=== PATIENT | female | born 1995 | race Hispanic/Latino ===

== ENCOUNTER 2016-11-29 22:01 | Emergency (ER) | payer MEDICAID ==
[~2016-11-29] VITALS: Ht 157.5 cm; Wt 54.5 kg
[~2016-11-29 22:01] MED LIST: METO-301 PO; NO; NOMED
[2016-11-29 22:05] VITALS: BP 137/74; PULSE 94; RESP 18; O2SAT 100
--- NOTE | 2016-11-30 00:04 | ED.REPORT ---
HPI-URI / Cough / Cold Date of Service Nov 30, 2016 ED Provider: Dr. Bernardo Hubbard MD A 21 year old, 15 week female with a history of GERD presents to the ED complaining of a fever that began a few days ago. Patient has also been experiencing fever, nausea, vomiting and generalized myalgia. Symptoms have been constant since onset. She denies any other medical complaints at this time. Nursing Notes Stated Complaint: FEVER/ 15 WKS Chief Complaint: FLU/Cold Symptoms Nursing Notes Reviewed: Yes Allergies: Coded Allergies: peanut (Verified Allergy, Unknown, 06/20/16) Scheduled PRN Metoclopramide (Reglan) 10 Mg Tablet 10 MG PO QID PRN PRN For Nausea Miscellaneous Medications ([No]) No Historical Medication (No Historical Medication) Ea General Time Seen by MD: 00:04 Chief Complaint Fever Hx Obtained From: Patient Arrived By: Walk-in Onset Occurred: 3 days ago Symptom Duration: Since onset Location: : Diffuse myalgia Quality: Painful Severity: Current: Mild Severity: Maximum: Mild Associated with: Reports: Body aches, Chills, Fever, Myalgia, Nausea, Vomiting Pertinent Negative: Pt denies other symptoms Recent Healthcare: No recent doctor visit, No recent hospitalization Past Medical History Past Medical History Seasonal allergies - 15 weeks Reports: GERD Past Surgical History None reported. Smoking History Never Smoker Social History Alcohol Use: Denies alcohol use Drug Use: Denies drug use Other Social History: Good social support, Local resident Occupation Works at [employer] Ambulatory Status Independent Review of Systems Constitutional: Reports: Chills, Fever, Malaise Respiratory: Reports: Non-productive cough, Denies: Shortness of breath GI: Reports: Nausea, Vomiting Neurologic: Denies: Change LOC Complete sys rev & neg: except as marked. Female: Reports: Musculoskeletal: Reports: Myalgia Physical Exam Initial Vital Signs Vital Signs (First) Date Time Temp Pulse Resp B/P Pulse Ox O2 Delivery O2 Flow Rate FiO2 11/29/16 22:05 37.1 94 18 137/74 100 Room Air Initial VS: Reviewed Head / Eyes: Atraumatic, Normocephalic, PERRL Extremities: Vascular intact, Neuro intact, No swelling, No tenderness Skin: Warm, Dry, No cyanosis Neurologic: Alert, Oriented, Nonfocal Psychiatric: Mood/affect normal, Behavior normal, Normal thought content General/Constitutional: Awake, Alert ENT: Atraumatic, Airway patent, Mucous membranes moist Respiratory / Chest: Atraumatic, Breath sounds NL, Breath sounds = bilat Interpretation & Diagnostics Lab Results Interpretation Result Diagram: 11/30/16 0004 11/30/16 0004 Test 11/30/16 00:04 11/30/16 01:39 White Blood Count 8.8th/mm3 (3.8-10.1) Red Blood Count 3.46mil/mm3 (3.90-5.20) Hemoglobin 11.5g/dL (12.0-15.6) Hematocrit 33.0% (35.0-46.0) Mean Corpuscular Volume 95.4fL (81-100) Mean Corpuscular Hemoglobin 33.2pg (27.0-35.0) Mean Corpuscular Hemoglobin Concent 34.8% (32.0-37.0) Red Cell Distribution Width 12.3% (12.3-15.4) Platelet Count 276bil/L (150-400) Neutrophils (%) (Auto) 75.7% (40-74) Lymphocytes (%) (Auto) 13.1% (14-46) Monocytes (%) (Auto) 10.0% (4-12) Eosinophils (%) (Auto) 0.6% (0-5) Basophils (%) (Auto) 0.3% (0-3) Hold Purple Top Tube Received (Received) Hold Blue Top Tube Received (Received) Sodium Level 133mEq/L (134-144) Potassium Level 3.5mEq/L (3.5-5.2) Chloride Level 98mEq/L (97-108) Carbon Dioxide Level 22mmol/L (18-29) Blood Urea Nitrogen 4mg/dL (6-20) Creatinine 0.51mg/dL (0.57-1.00) Estimat Glomerular Filtration Rate 218mL/min (>59) Glucose Level 97mg/dL (60-99) Calcium Level 9.0mg/dL (8.5-10.1) Total Bilirubin 0.3mg/dL (0.0-1.2) Aspartate Amino Transf (AST/SGOT) 13U/L (0-50) Alanine Aminotransferase (ALT/SGPT) 11U/L (0-32) Alkaline Phosphatase 58U/L (25-150) Total Protein 7.3g/dL (6.4-8.4) Albumin 4.1g/dL (3.4-5.0) Hold [place] Top Tube Received (Received) Urine Color Yellow (YELLOW) Urine Appearance Slightly cloudy Urine pH 7.5 (5.0-8.0) Urine Specific [place] 1.010 (1.003-1.035) Urine Protein Negativemg/dL (NEG,TRACE) Urine Glucose (UA) Negativemg/dL (NEGATIVE) Urine Ketones 15mg/dL (NEGATIVE) Urine Occult Blood Negative (NEGATIVE) Urine Nitrite Negative (NEGATIVE) Urine Bilirubin Negative (NEGATIVE) Urine Urobilinogen Normalmg/dL (NORMAL) Urine Leukocyte Esterase Negative (NEGATIVE) Urine RBC 0-2/hpf (0-2) Urine WBC 0-5/hpf (0-5) Urine Epithelial Cells Many/hpf (NONE-MOD) Urine Crystals Amorphous phosphates Urine Bacteria Moderate/hpf (NONE-FEW) Urine Hyaline Casts None/lpf (NONE) Urine Granular Casts None seen (NONE SEEN) Urine Waxy Casts None seen (NONE SEEN) Urine Red Blood Cell Casts None seen (NONE SEEN) Urine White Blood Cell Casts None seen (NONE SEEN) Urine Mucus None seen (None Seen) Urine Trichomonas None seen (NONE SEEN) Urine Yeast None (NONE SEEN) Urinalysis Comment Urine Culture Reflexed Indicated Lab Results Interpretation: INFLUENZA: Negative Re-Eval/Medical Decision Med Decision/Clinical Course 21-year-old females roughly 18 weeks . She had a lot of vomiting this and she comes in complaining of nausea vomiting. She also has fever chills and a URI on exam. She did not receive the influenza vaccine. She has clinical influenza when you take every thing into account. A rapid flu test was negative however I think it is going to be a false negative and the risk of influenza is greater than the risk of Tamiflu. Especially considering that we very seen 6 influenza a [place] and that she is clearly been exposed influenza. Influenza is rampant in our community and she is not vaccinated. I discussed all this and she agreed to the Tamiflu. We hydrated her with 2 L of saline. She received Reglan and Benadryl. At discharge she looked well and felt well. Close outpatient follow up recommended. Laboratory work was all very reassuring. I found no evidence of a bacterial infection. Re-Evaluation/Progress : Time of Eval: 02:16 Patient Status: Condition improved Re-Evaluation/Progress Note: Patient is rechecked. She is informed of her negative influenza results and diagnoses. All of the patient's questions are addressed. She understands and agrees with the treatment plan to discharge. Counseled Regarding: Diagnosis, Lab results, Need for follow-up, When/why to return to ED Discharge & Departure Impression: Primary Impression: Upper respiratory infection URI type: unspecified URI Qualified Code: J06.9 - Acute upper respiratory infection, unspecified Additional Impressions: Vomiting Vomiting type: unspecified Vomiting Intractability: unspecified Nausea presence: unspecified Qualified Code: R11.10 - Vomiting, unspecified Weeks of gestation: 15 weeks Qualified Code: Z3A.15 - 15 weeks gestation of Disposition: Home Discharge Condition All VS Reviewed: Yes Condition: Stable Patient Instructions: Acute Nausea and Vomiting (ED), Upper Respiratory Infection (ED) Additional Instructions: I am highly suspicious for you have an influenza A in spite of the negative test. It is recommended that all women regardless of a trimester have the in activated influenza vaccine. Discussed this with her licensed investment sales assistant and consider vaccination. Due to the fact that I think you have the disease I recommend that she take Tamiflu twice daily for 5 days. You may take your Reglan as prescribed for the nausea. Drink plenty of liquids. Your laboratory work was otherwise very reassuring. Your urine sample does not appear to show any signs of infection. If you have any worsening symptoms that do not hesitate to return to the emergency department. He may take Tylenol as directed for fever. Do not take aspirin or aspirin-containing products. Stay well hydrated. Return if any problems or any worsening symptoms. Call your licensed investment sales assistant tomorrow morning at set up a follow-up. Referrals: [facility] (PCP) [facility] Scribe Attestation Portions of this note were transcribed by Patience Ortiz. I, Dr. Hubbard personally performed the history, physical exam and medical decision-making; I reviewed and confirmed the accuracy of the information in the transcribed note. Signed by: Kim Kim, 11/30/16 0300. Bernardo Hubbard DO Nov 30, 2016 00:04 PATIENCE ORTIZ Nov 30, 2016 00:28
[2016-11-30] MEDS ORDERED: 0.9% Sodium Chloride 1,000 ML IV SCH (00:05)
[2016-11-30 00:11] LABS: BASOPHILS % (AUTO) 0.3 % (0-3); EOSINOPHILS % (AUTO) 0.6 % (0-5); Mean Corpuscular Hemoglobin 33.2 pg (27.0-35.0); Mean Corpuscular Volume 95.4 fL (81-100); NEUTROPHILS % (AUTO) 75.7 % (40-74); Platelet Count 276 bil/L (150-400)
[2016-11-30] MEDS ORDERED: MetoCLOpramide 5 mg/mL 2 mL Inj IVPUSH ONE (00:30)
[2016-11-30 01:57] LABS: APPEARANCE,URINE SLIGHTLY CLOUDY (CLEAR,HAZY); COLOR,URINE YELLOW (YELLOW); OCCULT BLOOD,URINE NEGATIVE (NEGATIVE); PH,URINE 7.5 (5.0-8.0); UROBILINOGEN,URINE NORMAL (NORMAL)
[2016-11-30 02:34] VITALS: BP 117/71; PULSE 90; RESP 18; O2SAT 98
== END 2016-11-30 02:36 | disposition home or self-care (01) ==
LOC: SED 22:01
DX: O99.512 Diseases of the respiratory system complicating pregnancy, second trimester (principal); O21.0 Mild hyperemesis gravidarum; J06.9 Acute upper respiratory infection, unspecified; K21.9 Gastro-esophageal reflux disease without esophagitis; Z3A.15 15 weeks gestation of pregnancy
CPT/HCPCS: 36415; 80053; 81000; 85025; 87086; 87088; 87804; 96361; 96374; 96375; 99285; J1200; J2765; J7030

== ENCOUNTER 2017-05-04 02:41 | Inpatient (IN) | payer MEDICAID ==
[~2017-05-04] VITALS: Ht 157.5 cm; Wt 64.9 kg
[2017-05-04] MEDS ORDERED: Promethazine 25 mg/mL Inj IM ONE (03:20)
[2017-05-04] MEDS ORDERED: fentaNYL-PF 50 mCg/mL 2 mL Inj IVPUSH PRN (06:10)
[2017-05-04] MEDS ORDERED: Lactated Ringer's 1,000 ML IV PRN (06:10)
[2017-05-04] MEDS ORDERED: Sodium Chloride LOK Flush 10 mL Syringe IVFLUSH PRN (06:10)
[2017-05-04] MEDS ORDERED: Hemorrhage Kit, Post Partum XX ONE ×2 (06:10→18:40)
[2017-05-04] MEDS ORDERED: Oxytocin 30 Units/500 mL LR 30 UNITS in IV Premix 1 EACH IV PRN ×3 (06:10→18:40)
[2017-05-04] MEDS ORDERED: Oxytocin 10 Unit/mL Inj IM PRN ×2 (06:10→18:40)
[2017-05-04] MEDS ORDERED: Carboprost 250 mCg/mL Inj IM PRN ×2 (06:10→18:40)
[2017-05-04] MEDS ORDERED: Methylergonovine 0.2 mg/mL Inj IM PRN ×2 (06:10→18:40)
[2017-05-04 06:49] LABS: Mean Corpuscular Hemoglobin 32.5 pg (27.0-35.0); Mean Corpuscular Volume 96.4 fL (81-100)
[2017-05-04] MEDS ORDERED: PREN1TAB87 PO (08:30)
[2017-05-04] MEDS ORDERED: Lactated Ringer's 500 ML IV ONE (08:34)
--- NOTE | 2017-05-04 08:34 | PCM.HPANE ---
Patient Data Date of Service: May 04, 2017 (0830) Surgeon Admitting Provider:Ashlee Alves MD Attending Provider:Ashlee Alves MD Primary Care Physician:Ashlee Alves MD Other Provider:Mary Ann Sellers Anesthesia Reason for Visit Term Labor TERM LABOR Ht/WT & BMI Body Mass Index Allergies Coded Allergies: peanut (Verified Allergy, Unknown, 06/20/16) Past Anesthesia History Anesthesia History: Denies:: Abnormal Airway, Anesthesia Reactions Diabetes History Hx Diabetes?: No MRSA MRSA: No Medications Hypertension Medication: No Home Meds Incl Beta Marjorie: No Active Scripts Metoclopramide (Reglan)10 Mg Cmbyyd46 Mg PO QID PRN For Nausea #40 TABLET Ref 0 Prov:GomesLatha DO 09/22/16 Reported Medications Vit W-Ca,Fe,FA(<1 mg) ( Vitamins)1 Each Tablet1 Each PO 05/04/17 No Historical Medication Ea 10/15/13 [No] No Conflict Check 12/14/12 History History of ENT Problems?: No HEENT History: Denies:: Abnormal Airway Denture Type: None Teeth Condition: Within Normal Limits Hx of Heart Problems?: No Cardiovascular History: Denies:: Congestive Heart Failure Hypertension Hx of Respiratory Problem?: No Respiratory History: Denies:: Tuberculosis Hx Neurologic Problems?: No Hx of GI Problems?: No Hx of Problems?: No Female Hx: Positive for:: Currently Hx Musculoskeletal Problems?: No Hx of Psycho/Social Problems?: No Hx Surgeries?: No Hx Any Other Health Problems?: No Hx Diabetes: No Hx Alcohol Use: NoHx Substance Use: No Smoking Status: Never Smoker Have You Smoked inLast 12 mo: No Stop/Bang AMANDA Risk Assessment: Low Risk, <3 Yes Risk Assessment Category Category 1A: Patient has history of documented sleep apnea, and HAS NOT received any narcotic, sedative or anesthesia administration during this stay. Category 1B: Patient has history of documented sleep apnea, and HAS received any narcotic , sedative or anesthesia administration during this stay Category 2: Patient has SUSPECTED Obstructive Sleep Apnea, and HAS received any narcotic , sedative or anesthesia administration during this stay. Category 3: Patient has SUSPECTED Obstructive Sleep Apnea and HAS NOT received narcotic, sedative or anesthesia administration during this stay. Category 4: Outpatient in Procedural Areas with known sleep apnea or who screen positive for High Risk via the STOP/BANG questionnaire. Exam Exam General Appearance: Alert, Oriented X3 HEENT/AIRWAY: MP 1 Lungs: Clear to Auscultation Heart: Exam Unremarkable Meds/Labs/Diagnostics Labs Test 05/04/17 06:25 White Blood Count 11.1th/mm3 (3.8-10.1) Red Blood Count 3.38mil/mm3 (3.90-5.20) Hemoglobin 11.0g/dL (12.0-15.6) Hematocrit 32.6% (35.0-46.0) Mean Corpuscular Volume 96.4fL (81-100) Mean Corpuscular Hemoglobin 32.5pg (27.0-35.0) Mean Corpuscular Hemoglobin Concent 33.7% (32.0-37.0) Red Cell Distribution Width 11.4% (12.3-15.4) Platelet Count 197bil/L (150-400) Plan Impression Patient chart reviewed, patient interviewed and anesthestic plan with risks, benefits, and alternatives discussed, and informed consent obtained. ASA Physical Status: ASA1 Normal Healthy Anesthetic Plan: Epidural Bene/Risks/Altern/Consents: Yes HP Complete Prior to Induction: Yes William Frost MD May 04, 2017 08:34
[2017-05-04] MEDS ORDERED: Atropine 1 mg/10 mL (Code) Syringe IVPUSH PRN (08:35)
[2017-05-04] MEDS ORDERED: EPHEDrine Sulfate 50 mg/mL Inj IVPUSH PRN (08:35)
[2017-05-04] MEDS ORDERED: Ondansetron 2 mg/mL 2 mL Inj IVPUSH PRN (08:35)
[2017-05-04] MEDS ORDERED: fentaNYL 2 mCg/mL-Bupiv 0.125% 100 ML EPIDURAL SCH (08:35)
--- NOTE | 2017-05-04 08:42 | PCM.HPOB ---
Subjective Referring Provider: Admitting Physician: Ashlee Alves MD Primary Care Physician: Ashlee Alves MD Attending Physician: Ashlee Alves MD Chief Complaint "nausea and contractions" History of Present History of Present Illness Ms. Kathy Celestin is a 21-year-old woman at 37 weeks 4 days with an NAVARRO of 05/21/2017 based on 5 week ultrasound presenting to the [facility] with nausea, vomiting, contractions, and vaginal discharge. She was observed in triage and determined to be in early labor. Her cervix was found to be dilated to 4 cm at 6:30 this morning, this is a change from her last office visit of 1 cm on 05/02/17. Her nausea and vomiting have improved with Phenergan, though she is still unable to keep down fluids. She is breathing through her contractions which are currently about 5 minutes apart, and the heart rate tracing is reassuring with a rate in the 140s and accelerations. She has not had a gush of fluids. She noticed some brown vaginal discharge. She does not have any chronic medical problems, and her has been uncomplicated thus far. Patient would prefer to deliver without pain management, but is open to having an epidural if needed. She does not have blurred vision, nasal congestion, sore throat, cough, or upper abdominal pain. OB History: (2), Para (0), Term (0), Pre-term (0), ( 1), Living (0) Obstetrical Complications: None Past Medical History Obstetrical History: History of 1 spontaneous Gynecologic History: No history of STIs Medical History: GERD during Surgical History: Denies previous surgeries Hx Tobacco Use: No Hx Alcohol Use: No Hx Substance Use: No Past Family History Family History Maternal grandfather and grandmother have diabetes mellitus Review of Systems Eyes: Denies: Blurred Vision, Double Vision ENT: Denies: Nasal Congestion, Nose Discharge, Throat Pain Cardiovascular: Denies: Chest Pain Respiratory: Denies: SOB with Exertion Gastrointestinal: Reports: Nausea, Vomiting Genitourinary: Denies: Dysuria Skin: Denies: Rash Neurological: Reports: Dizziness Medications Home medications vitamin Exam Vital Signs 98.2 degrees F, BP 129/79, HR 84, RR 16 Exam Baseline 140s with moderate variability and accelerations Constitutional: Well-developed, Well-nourished, Normal habitus HEENT: Atraumatic, EOMI, Scleral Anicteric, Mucous Membr Moist/[place] Lungs: Clear to Auscultation, Normal Air Movement Heart: Regular Rate/Rhythm, Normal S1, Normal S2, No Murmurs/Rubs/Gallops Abdomen: Gravid, Normal bowel sounds Extremities: Pulses Palpable x4, Warm, Edema (bilateral non-pitting mild pedal edema) Neurological/Psychiatric: Alert, Oriented X3, Cooperative, No Acute Distress Neuro: Grossly Neurologically Intact, Cranial Nerves 3-12 nl, Normal Speech Labs/Diagnostics Labs Item Value Date Time White Blood Count 11.1 th/mm3 H 05/04/17624 Red Blood Count 3.38 mil/mm3 L 05/04/17624 Hemoglobin 11.0 g/dL L 05/04/17624 Hematocrit 32.6 % L 05/04/17624 Mean Corpuscular Volume 96.4 fL 05/04/17624 Mean Corpuscular Hemoglobin 32.5 pg 05/04/17624 Mean Corpuscular Hemoglobin Concent 33.7 % 05/04/17624 Red Cell Distribution Width 11.4 % L 05/04/17624 Platelet Count 197 [place]/L 05/04/17624 Maternal Blood Type: O (positive) Antibody Screen: negative Rubella: Immune Additional Information labs: blood type O positive, antibody screen negative, Varicella immune , rubella immune, RPR non reactive, HbsAg negative, HIV non reactive, hepatitis C negative, gonorrhea and chlamydia negative, Pap smear negative, 1 hour glucose tolerance test within normal limits, GBS negative OB Intrapartum Assessment/Plan Assessment 21-year-old woman at 37 weeks 4 days with an NAVARRO of 05/21/2017 based on 5 week ultrasound Intrapartum plan 21-year-old woman at 37 weeks 4 days with an NAVARRO of 05/21/2017 based on 5 week ultrasound - In active labor. Pt's has normal uterine activity and cervix was found to be 4 cm. - Continue to monitor cervical changes and contractions and consider Cytotec and /or Pitocin if needed - Continue to monitor FHR - Epidural for pain control if pt desires - Anticipate Attending Statement The patient was seen and examined together with Dr. Singletary on 05/04/2017 and I agree with the history, exam and plan as outlined in the note above. Tali Singletary DO May 04, 2017 08:13 Ashlee Alves MD May 04, 2017 13:02
[2017-05-04] MEDS: Lactated Ringer's 1,000 ML IV SCH ×2 (09:50→17:18)
--- NOTE | 2017-05-04 13:00 | PCM.PNOBIP ---
Subjective Date of Service May 04, 2017 Visit History Ms. Kathy Celestin is a 21-year-old woman at 37 weeks 4 days with an NAVARRO of 05/21/2017 based on 5 week ultrasound presenting to the [facility] with nausea, vomiting, contractions, and vaginal discharge. She was observed in triage and determined to be in early labor. Her cervix was found to be dilated to 4 cm at 6:30 this morning, this is a change from her last office visit of 1 cm on 05/02/17. Her nausea and vomiting have improved with Phenergan, though she is still unable to keep down fluids. She is breathing through her contractions which are currently about 5 minutes apart, and the heart rate tracing is reassuring with a rate in the 140s and accelerations. She has not had a gush of fluids. She noticed some brown vaginal discharge. She does not have any chronic medical problems, and her has been uncomplicated thus far. Patient would prefer to deliver without pain management, but is open to having an epidural if needed. Subjective Patient is resting comfortably with epidural in place. No complaints or questions. Maternal Date/Time of ROM: AROM 12:50hrs 05/04/2017 Pain Management: Epidural Rubella: Immune Blood Type: O (positive) RH Type: Positive Labs Laboratory Tests 05/04/17 06:25: White Blood Count 11.1, Red Blood Count 3.38, Hemoglobin 11.0, Hematocrit 32.6, Mean Corpuscular Volume 96.4, Mean Corpuscular Hemoglobin 32.5, Mean Corpuscular Hemoglobin Concent 33.7, Red Cell Distribution Width 11.4, Platelet Count 197 Exam Vital Signs Vital Signs Contraction frequency in minutes: every 2-3 minutes Vital Signs: VS reviewed, stable Heart Tracings Heart Tones Baseline 120 bpm Heart Rate Variability: Moderate Heart Rate Accelleration: Present Heart Rate Deceleration: Absent Heart Rate Category: I Sterile Vaginal Exam Cervical Dilation: 5 cms Cervical Effacement: 100 % Station: -3 Exam Heart: Normal S2 General: Alert, Oriented X3, Cooperative, No Acute Distress OB Intrapartum Assessment/Plan Problems: (1) 37 or more completed weeks of gestation Status: Acute ICD Code: [id number] (2) Active labor at term Plan: AROM with clear fluid. Plan to start Pitocin Continue to monitor. Status: Acute ICD Code: [id number] Ashlee Alves MD May 04, 2017 13:00
[2017-05-04] MEDS ORDERED: Lactated Ringer's 1,000 ML IV SCH (18:36)
--- NOTE | 2017-05-04 18:38 | PCM.OBVAG ---
Vaginal Delivery Date of Service May 04, 2017 Pre Operative Diagnosis Pre Operative Diagnosis 21-year-old woman at 37 weeks 4 days with an NAVARRO of 05/21/2017 based on 5 week ultrasound Post Operative Diagnosis Post Operative Diagnosis 21-year-old now P1 woman at 37 weeks 4 days with an NAVARRO of 05/21/2017 based on 5 week ultrasound Procedure Obstetical Procedure: Normal Spontaneous Vaginal Delivery Gauge Maker Apprentice/Heating Repair Technician Provider and Heating Repair Technician: MD Tali Michaud DO, PGY-2 Indication for Procedure Induction: Pitocin augmentation, AROM, Progressed normally through labor Findings Obstetrical Findings: (Female), Cord (3 Vessel), Weight (2852 grams), Presentation (OA), 1 minute (8), 5 minutes (9), Placenta ( Intact/Normal) Analgesia/Medications Obstetrical Anesthesia: Epidural Procedure Details Procedure Details Patient is a 21 yo now P1 who presented to Labor and Delivery for nausea and abdominal discomfort. She desired an epidural and one was placed. She made normal progress through labor and was found to be complete at 17:04. She began pushing. Procedure: A sterile drape was placed under the patient's buttocks and with expulsive efforts, she delivered head over an intact perineum. No nuchal cord. The rest of the body was delivered. The baby was placed on maternal abdomen, skin to skin. Warming and stimulating maneuvers were applied. After a minute, the cord was clamped, and cut. The was delivered at 18:14. The placenta then delivered spontaneously intact at 18:23 with a three vessel cord. She had hemostatic labial abrasions that did not require repair. Uterus firmed with manual external massage. The patient and infant tolerated the procedure well and pt is stable in her room. Blood Loss & Administration Estimated Blood Loss: 200 Post Procedure Plan Post Procedure Plan Routine post care Continue to monitor nausea, vomiting, and temperature Post delivery Condition: Mom stable Attending Statement I was present for the entire delivery and assisted Dr. Tali Singletary DO as needed and agree with the above documentation. Tali Singletary DO May 04, 2017 18:38 Ashlee Alves MD May 07, 2017 11:52
[2017-05-04] MEDS ORDERED: LANOlin HPA 7 Gm Ointment TOPICAL PRN (18:40)
[2017-05-04] MEDS ORDERED: Witch Hazel-Glycerin Pads TOPICAL PRN (18:40)
[2017-05-04] MEDS ORDERED: oxyCODONE-Acetamin 5-325 mg Tablet PO PRN (18:40)
[2017-05-04] MEDS ORDERED: Benzocaine (Dermoplast) 20% 60 Gm Spray TOPICAL PRN (18:40)
--- NOTE | 2017-05-04 18:42 | PCM.ANEP1 ---
Post Anesthesia PACU Phase 1 Assessment Anesthetic Administered: Epidural Level of Alertness: Awake, talking MALDONADO's with Equal Strength: Yes Pain: No Nausea or Vomiting: No CV Function & Hydration Stable: Yes Airway Device: none Oxygen Delivery: Room Air Lungs: Clear to Auscultation Dermatome Level: Full Sensation Summary s/p well functioning epidural PACU Phase 2 Assessment Complications: No Follow up Care: No Patient Instructions Provided: N/A William Frost MD May 04, 2017 18:42
[2017-05-05 08:00] LABS: Mean Corpuscular Volume 98.2 fL (81-100)
[2017-05-05] MEDS ORDERED: Ascorbic Acid 500 mg Tablet PO SCH (08:00)
--- NOTE | 2017-05-05 09:22 | PCM.DIOB ---
Obstetrical Disch Instruction Dates of Hospitalization Date of Hospital Admission May 04, 2017 at 04:50 Providers Admitting Physician: Ashlee Alves MD Primary Care Physician: Ashlee Alves MD Attending Physician: Ashlee Alves MD Discharge Diagnosis Problems: (1) 37 or more completed weeks of gestation Status: Acute ICD Code: 765.29 (2) Active labor at term Status: Acute Diet Discharge Diet: No restrictions Activity Discharge Activity-General: Pelvic Rest for 6 weeks, Activity as pain allows, No lifting >10 pounds for 4-6 weeks Dressing and Incisional Care Hygiene: May shower, NO bathtub, hot tub or whirlpool, Perineal care, Sitz bath , Dermoplast spray, Witch Yvette pads Follow Up Plan Follow-up appointment: Weeks (6) Call your provider for: Fever or Chills, Shortness of breath, Heavy vaginal bleeding Holly Felton MD May 05, 2017 09:22
[2017-05-05] MEDS ORDERED: FERR-83 PO (09:23)
[2017-05-05] MEDS ORDERED: IBUP800T28 PO (09:23)
[2017-05-05 09:38] VITALS: BP 127/64; PULSE 72; RESP 16
--- NOTE | 2017-05-05 11:33 | DIS ---
[address] [address] DISCHARGE SUMMARY PATIENT: BELLA TRAN : 1995 MR#: [id number] ADMIT: 05/04/2017 JOB ID: [id number] DIS: 05/05/2017 ADMISSION DIAGNOSES: 1. A 21-year-old G 2, P 0 at 37 plus 4 weeks gestation admitted with active labor. 2. Gastroesophageal reflux disease. DISCHARGE DIAGNOSES: 1. A 21-year-old G 2, P 0 at 37 plus 4 weeks gestation admitted with active labor. 2. Gastroesophageal reflux disease. PROCEDURES PERFORMED: Spontaneous vaginal delivery of a live born female infant, born on May 04, 2017 at 1814 hours weighing 6 pounds 5 ounces or 2852 g with Apgars of 8 at one minute, 9 at five minutes. REASON FOR ADMISSION: A 21-year-old G 2, P 0, at 37 plus 4 weeks gestation who was presenting with leakage of fluid. She was noted to be grossly ruptured and 4 cm dilated. She was admitted on the 4 cm dilated, and noted to be in active labor. An epidural was placed for pain relief and artificial rupture of membranes was completed on the afternoon of the . She then progressed to complete and began to push on the evening of the going on to deliver a liveborn female infant. Please see the operative report for full details. By day #1, her pain was well controlled. She has tolerating a regular diet, voiding and ambulating well on her own. Her lab data, which had been followed, showed that her hemoglobin had dropped to 11.0 preoperatively down to 9.2 on day #1. The platelets were stable at 166 and her white count was mildly elevated at 13.5, so at this point in time, she was deemed stable for discharge. PHYSICAL EXAMINATION ON THE DAY OF DISCHARGE: On the day of discharge, her blood pressure is 127/64, heart rate is 72, respiratory rate is 16 and temperature is 97.3. In general she is awake, alert, oriented, no acute distress. Her abdomen is soft, nontender. Her fundus is firm below the umbilicus and her extremities show no tenderness or edema. INSTRUCTIONS AT DISCHARGE: The patient was advised to remain at pelvic rest for six weeks including no tampons, douching or intercourse. She was asked to call with any signs or symptoms of infection including fever greater than 100.5 degrees, severe pain, malodorous vaginal discharge or bleeding more than a pad per hour. MEDICATIONS AT DISCHARGE: Included: 1. Ibuprofen 800 mg p.o. t.i.d. as well as ferrous sulfate 325 mg p.o. b.i.d., 2. She was asked to continue her vitamin as prescribed. She was breast and bottle feeding at the time of discharge and was otherwise deemed stable for discharge on day #1.
== END 2017-05-05 14:35 | disposition home or self-care (01) | DRG 775 ==
LOC: FBCO 02:41 → FBC 04:50
PROVIDERS: ADMIT Obstetrics & Gynecology; ATTEND Obstetrics & Gynecology
PROC: 10E0XZZ Delivery of Products of Conception, External Approach (ICD-10-PCS; principal; 2017-05-04)
PROC: 10907ZC Drainage of Amniotic Fluid, Therapeutic from Products of Conception, Via Natural or Artificial Opening (ICD-10-PCS; 2017-05-04)
DX: O80 Encounter for full-term uncomplicated delivery (principal); Z37.0 Single live birth; Z3A.37 37 weeks gestation of pregnancy